=== PATIENT | male | born 1980 | race Two or more races ===

== ENCOUNTER 2016-11-21 19:52 | Emergency (ER) | payer BC ==
--- NOTE | 2016-11-21 19:56 | EDM.PDOC ---
ED HPI GENERAL MEDICAL PROBLEM - General Chief Complaint: Eye Problems Stated Complaint: EYES RED AND ITCHY Time Seen by Provider: 11/21/16 19:53 - History of Present Illness INITIAL COMMENTS - FREE TEXT/NARRATIVE: HISTORY AND PHYSICAL: History of present illness: Patient 37-year-old male presents with a concern of irritation redness of his eyes bilaterally since Monday he states he's been itchy he denies any trauma denies any visual disturbances no chronic medical problems on no medications and denies other concern. Review of systems: As per history of present illness and below otherwise all systems reviewed and negative. Past medical history: As per history of present illness and as reviewed below otherwise noncontributory. Surgical history: As per history of present illness and as reviewed below otherwise noncontributory. Social history: No reported history of drug or alcohol abuse. Family history: As per history of present illness and as reviewed below otherwise noncontributory. Physical exam: HEENT: Atraumatic, normocephalic, pupils reactive, injected conjunctiva bilaterally no foreign body anterior chamber clear negative for conjunctival pallor or scleral icterus, mucous membranes moist, throat clear, neck supple, nontender, trachea midline. Lungs: Clear to auscultation, breath sounds equal bilaterally, chest nontender. Heart: S1S2, regular, negative for clicks, rubs, or JVD. Abdomen: Soft, nondistended, nontender. Negative for masses or hepatosplenomegaly. Negative for costovertebral tenderness. Pelvis: Stable nontender. Genitourinary: Deferred. Rectal: Deferred. Extremities: Atraumatic, negative for cords or calf pain. Neurovascular unremarkable. Neuro: Awake, alert, oriented. Cranial nerves II through XII unremarkable. Cerebellum unremarkable. Motor and sensory unremarkable throughout. Exam nonfocal. Diagnostics: None Therapeutics: None Impression: #1 conjunctivitis Definitive disposition and diagnosis as appropriate pending reevaluation and review of above. ED ROS GENERAL - Review of Systems Review Of Systems: ROS reveals no pertinent complaints other than HPI. ED EXAM GENERAL W FULL EYE - Physical Exam Exam: See Below (See dictation) Departure - Departure Time of Disposition: 19:55 Disposition: Home, Self-Care 01 Condition: good Clinical Impression: Conjunctivitis - Discharge Information Forms: ED Department Discharge Additional Instructions: The following information is given to patients seen in the emergency department who are being discharged to home. This information is to outline your options for follow-up care. We provide all patients seen in our emergency department with a follow-up referral. The need for follow-up, as well as the timing and circumstances, are variable depending upon the specifics of your emergency department visit. If you don't have a primary care physician on staff, we will provide you with a referral. We always advise you to contact your personal physician following an emergency department visit to inform them of the circumstance of the visit and for follow-up with them and/or the need for any referrals to a consulting specialist. The emergency department will also refer you to a specialist when appropriate. This referral assures that you have the opportunity for followup care with a specialist. All of these measure are taken in an effort to provide you with optimal care, which includes your followup. Under all circumstances we always encourage you to contact your private physician who remains a resource for coordinating your care. When calling for followup care, please make the office aware that this follow-up is from your recent emergency room visit. If for any reason you are refused follow-up, please contact the [facility] emergency department at and asked to speak to the emergency department charge nurse. Tobramycin as directed follow-up primary medical doctor return as needed as discussed
[2016-11-21 20:15] VITALS: BP 131/70
== END 2016-11-21 20:15 | disposition home or self-care (01) ==
LOC: MW.ED 19:52
DX: H10.9 Unspecified conjunctivitis (principal)
CPT/HCPCS: 99282; 99283

== ENCOUNTER 2018-07-04 20:29 | Emergency (ER) | payer BC ==
[2018-07-04] MEDS ORDERED: Ketorolac 30 MG/ML SDV IVPUSH ONE (20:46)
[2018-07-04] MEDS ORDERED: Sodium Chloride 0.9% 1,000 ML IV ONE (20:46)
--- NOTE | 2018-07-04 20:46 | EDM.PDOC ---
ED HPI GENERAL MEDICAL PROBLEM - General Stated Complaint: PT HAS CHEST PAINS Time Seen by Provider: 07/04/18 20:38 Source of Information: Reports: Patient History Limitations: Reports: No Limitations - History of Present Illness INITIAL COMMENTS - FREE TEXT/NARRATIVE: HISTORY AND PHYSICAL: History of present illness: Patient is a 38 showed male who presents to the emergency room with complaints of left sided chest wall pain that radiates into his left shoulder. He states this has been ongoing for the past 2 days and is very localized. He denies any fever, chills, shortness of breath, cough. The pain is not made any better or worse with palpation, movement, deep breathing or coughing. He denies any abdominal pain, nausea, vomiting, diarrhea, constipation or dysuria. He has been able to eat and drink appropriately. No previous smoking history. No personal history of heart disease. States his father has heart disease, still living. 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 We did offer [facility] [facility] services which she declines. Review of systems: As per history of present illness and below otherwise all systems reviewed and negative. Past medical history: As per history of present illness and as reviewed below otherwise noncontributory. Surgical history: As per history of present illness and as reviewed below otherwise noncontributory. Social history: See social history for further information Family history: As per history of present illness and as reviewed below otherwise noncontributory. Physical exam: General: Well-developed and well-nourished 38 showed male. Alert and oriented. Nontoxic appearing and in no acute distress. HEENT: Atraumatic, normocephalic, pupils equal and reactive bilaterally, negative for conjunctival pallor or scleral icterus, mucous membranes moist, TMs normal bilaterally, throat clear, neck supple, nontender, trachea midline. No drooling or trismus noted. No meningeal signs. No hot potato voice noted. Lungs: Clear to auscultation, breath sounds equal bilaterally, chest nontender. Pain not reproducable. Heart: S1S2, regular rate and rhythm without overt murmur Abdomen: Soft, nondistended, nontender. Negative for masses or hepatosplenomegaly. Negative for costovertebral tenderness. Pelvis: Stable nontender. Genitourinary: Deferred. Rectal: Deferred. Skin: Intact, warm, dry. No lesions or rashes noted. Extremities: Atraumatic, negative for cords or calf pain. Neurovascular unremarkable. Neuro: Awake, alert, oriented. Cranial nerves II through XII unremarkable. Cerebellum unremarkable. Motor and sensory unremarkable throughout. Exam nonfocal. Notes: [employer] services was used for translating all of diagnostics. Patient reports he feels improved since the IV fluids and Toradol. I did offer him admission which she declines. I reviewed discharge instructions, signs and symptoms that would prompt him to return to the emergency room and risks versus benefits of being discharged. He voices understanding and is agreeable to plan of care. Denies any further questions or concerns from me. Diagnostics: CBC, CMP, troponin, EKG, one view chest Therapeutics: IV fluids, Toradol, GI cocktail, morphine Prescription: None Impression: Chest pain, nonspecific Plan: 1. Please start a baby Aspirin once daily 2. Tylenol and/or ibuprofen as needed for pain management. 3. Follow up with a primary care provider in the next 1-2 days. Return to the ED as needed and as discussed. Definitive disposition and diagnosis as appropriate pending reevaluation and review of above. L chest Pain Score (Numeric/FACES): 7 - Related Data Allergies Allergy/AdvReac Type Severity Reaction Status Date / Time No Known Allergies Allergy Verified 07/04/18 20:45 Home Meds: Home Meds . [No Known Home Meds] 11/21/16 [History] Past Medical History - Past Health History Medical/Surgical History: Denies Medical/Surgical History Psychiatric History: Reports: None - Infectious Disease History Infectious Disease History: Reports: None Social & Family History - Family History Family Medical History: Noncontributory ED ROS GENERAL - Review of Systems Review Of Systems: ROS reveals no pertinent complaints other than HPI. ED EXAM, GENERAL - Physical Exam Exam: See Below (See dictation) Course - Vital Signs Last Recorded V/S: Last Vital Signs Temp 97.4 F 07/04/18 20:38 Pulse 80 07/04/18 20:38 Resp 16 07/04/18 20:38 BP 129/66 07/04/18 20:38 Pulse Ox 96 07/04/18 20:38 - Orders/Labs/Meds Orders: Active Orders 24 hr Category Date Time Status EKG Documentation Completion [RC] STAT Care 07/04/18 20:34 Active Chest 1V Frontal [CR] Stat Exams 07/04/18 20:34 Taken GI Cocktail with Reglan 25 ML PO x 1 Med 07/04/18 21:57 Ordered Alum Hydrox/Mag Hydrox/Simeth [Mag-Al Plus] 15 ml Metoclopramide [Reglan] 5 mg Lidocaine 2% [Xylocaine 2% Viscous] 5 ml PO ONETIME Morphine Med 07/04/18 21:57 Once 2 mg IVPUSH ONETIME ONE Labs: Laboratory Tests 07/04/18 07/04/18 Range/Units 20:50 20:50 WBC 9.78 (4.0-11.0) K/uL RBC 4.69 (4.50-5.90) M/uL Hgb 14.8 (13.0-17.0) g/dL Hct 41.3 (38.0-50.0) % MCV 88.1 (80.0-98.0) fL MCH 31.6 (27.0-32.0) pg MCHC 35.8 (31.0-37.0) g/dL RDW Std Deviation 40.5 (28.0-62.0) fl RDW Coeff of Sarah 13 (11.0-15.0) % Plt Count 213 (150-400) K/uL MPV 10.50 (7.40-12.00) fL Neut % (Auto) 58.8 (48.0-80.0) % Lymph % (Auto) 31.3 (16.0-40.0) % [place]irie % (Auto) 8.8 (0.0-15.0) % Eos % (Auto) 0.9 (0.0-7.0) % Baso % (Auto) 0.2 (0.0-1.5) % Neut # (Auto) 5.8 H (1.4-5.7) K/uL Lymph # (Auto) 3.1 H (0.6-2.4) K/uL [place] # (Auto) 0.9 H (0.0-0.8) K/uL Eos # (Auto) 0.1 (0.0-0.7) K/uL Baso # (Auto) 0.0 (0.0-0.1) K/uL Nucleated RBC % 0.0 /100WBC Nucleated RBCs # 0 K/uL Sodium 140 (136-148) mmol/L Potassium 3.8 (3.5-5.1) mmol/L Chloride 105 (98-107) mmol/L Carbon Dioxide 26.9 (21.0-32.0) mmol/L BUN 14 (7.0-18.0) mg/dL Creatinine 1.0 (0.8-1.3) mg/dL Est Cr Clr Drug Dosing TNP Estimated GFR (MDRD) > 60.0 ml/min Glucose 110 H (74-106) mg/dL Calcium 9.3 (8.5-10.1) mg/dL Total Bilirubin 0.4 (0.2-1.0) mg/dL AST 34 (15-37) IU/L ALT 82 H (14-63) IU/L Alkaline Phosphatase 94 (46-116) U/L Troponin I < 0.050 (0.000-0.056) ng/mL Total Protein 7.4 (6.4-8.2) g/dL Albumin 3.7 (3.4-5.0) g/dL Globulin 3.7 (2.6-4.0) g/dL Albumin/Globulin Ratio 1.0 (0.9-1.6) Meds: Medications Discontinued Medications Generic Name Dose Route Start Last Admin Trade Name Freq PRN Reason Stop Dose Admin Sodium Chloride 1,000 mls @ 999 mls/hr 07/04/18 20:46 07/04/18 20:59 Normal Saline IV 07/04/18 21:46 999 mls/hr STAT ONE Administration Ketorolac Tromethamine 30 mg 07/04/18 20:46 07/04/18 20:58 Toradol IVPUSH 07/04/18 20:47 30 mg ONETIME ONE Administration Departure - Departure Time of Disposition: 21:58 Disposition: Home, Self-Care 01 Clinical Impression: Nonspecific chest pain Instructions: Nonspecific Chest Pain, [id number] Referrals: PCP,None [Primary Care Provider] - Additional Instructions: The following information is given to patients seen in the emergency department who are being discharged to home. This information is to outline your options for follow-up care. We provide all patients seen in our emergency department with a follow-up referral. The need for follow-up, as well as the timing and circumstances, are variable depending upon the specifics of your emergency department visit. If you don't have a primary care physician on staff, we will provide you with a referral. We always advise you to contact your personal physician following an emergency department visit to inform them of the circumstance of the visit and for follow-up with them and/or the need for any referrals to a consulting specialist. The emergency department will also refer you to a specialist when appropriate. This referral assures that you have the opportunity for follow-up care with a specialist. All of these measure are taken in an effort to provide you with optimal care, which includes your follow-up. Under all circumstances we always encourage you to contact your private physician who remains a resource for coordinating your care. When calling for follow-up care, please make the office aware that this follow-up is from your recent emergency room visit. If for any reason you are refused follow-up, please contact the [facility] Emergency Department at and asked to speak to the emergency department charge nurse. [facility] [address] [place] [id number] [id number] 1. Please start a baby Aspirin once daily 2. Tylenol and/or ibuprofen as needed for pain management. 3. Follow up with a primary care provider in the next 1-2 days. Return to the ED as needed and as discussed. - My Orders Last 24 Hours: My Active Orders 07/04/18 20:34 EKG Documentation Completion [RC] STAT Chest 1V Frontal [CR] Stat 07/04/18 21:57 GI Cocktail with Reglan 25 ML PO x 1 Alum Hydrox/Mag Hydrox/Simeth [Mag-Al Plus ] 15 ml Metoclopramide [Reglan] 5 mg Lidocaine 2% [Xylocaine 2% Viscous] 5 ml PO ONETIME Morphine 2 mg IVPUSH ONETIME ONE - Assessment/Plan Last 24 Hours: My Active Orders 07/04/18 20:34 EKG Documentation Completion [RC] STAT Chest 1V Frontal [CR] Stat 07/04/18 21:57 GI Cocktail with Reglan 25 ML PO x 1 Alum Hydrox/Mag Hydrox/Simeth [Mag-Al Plus ] 15 ml Metoclopramide [Reglan] 5 mg Lidocaine 2% [Xylocaine 2% Viscous] 5 ml PO ONETIME Morphine 2 mg IVPUSH ONETIME ONE
[2018-07-04 21:22] LABS: CHLORIDE,CL 105 mmol/L (98-107); SODIUM,NA 140 mmol/L (136-148)
[2018-07-04] MEDS ORDERED: Alum Hydrox/Mag Hydrox/Simeth 15 ML, Metoclopramide 5 MG, Lidocaine 2% 5 ML PO ONE ×3 (21:57)
[2018-07-04] MEDS ORDERED: Morphine 2 MG/ML Syringe IVPUSH ONE (21:57)
[2018-07-04 22:29] VITALS: BP 109/61
--- NOTE | 2018-07-05 08:35 | CR ---
INDICATION: chest pain TECHNIQUE: Chest 1 view. COMPARISON: None. FINDINGS: Cardiovascular and mediastinum: Heart size and vasculature are normal in caliber and appearance. Mediastinum is within normal limits. Lungs and pleural space: Lungs are clear. No sign of infiltrate or mass. No sign of pleural effusion. No pneumothorax. Bones and soft tissues: No significant findings. IMPRESSION: Unremarkable chest. Dictated by: Ravin Schumacher MD @ 07/04/2018 21:46:17 (Electronically Signed)
== END 2018-07-04 22:18 | disposition home or self-care (01) ==
LOC: MW.ED 20:29
DX: R07.89 Other chest pain (principal)
CPT/HCPCS: 36415; 71045; 80053; 84484; 85025; 93005; 96361; 96374; 99285; A9270; J1885; J7040

== ENCOUNTER 2019-05-01 23:02 | Emergency (ER) | payer SELFPAY ==
[2019-05-01 23:08] VITALS: BP 135/79; PULSE 85
--- NOTE | 2019-05-01 23:20 | EDM.PDOC ---
ED HPI GENERAL MEDICAL PROBLEM - General Chief Complaint: ENT Problem Stated Complaint: SORE THROAT Time Seen by Provider: 05/01/19 23:16 - History of Present Illness INITIAL COMMENTS - FREE TEXT/NARRATIVE: HISTORY AND PHYSICAL: History of present illness: Patient is a 39-year-old male presents with a concern of sore throat worse over last 2 days denies fever chills nausea vomiting Review of systems: As per history of present illness and below otherwise all systems reviewed and negative. Past medical history: As per history of present illness and as reviewed below otherwise noncontributory. Surgical history: As per history of present illness and as reviewed below otherwise noncontributory. Social history: No reported history of drug or alcohol abuse. Family history: As per history of present illness and as reviewed below otherwise noncontributory. Physical exam: HEENT: Atraumatic, normocephalic, pupils reactive, negative for conjunctival pallor or scleral icterus, mucous membranes moist, throat pustular exudates noted no peritonsillar fullness or uvular deviation, neck supple, nontender, trachea midline. Lungs: Clear to auscultation, breath sounds equal bilaterally, chest nontender. Heart: S1S2, regular, negative for clicks, rubs, or JVD. Abdomen: Soft, nondistended, nontender. Negative for masses or hepatosplenomegaly. Negative for costovertebral tenderness. Pelvis: Stable nontender. Genitourinary: Deferred. Rectal: Deferred. Extremities: Atraumatic, negative for cords or calf pain. Neurovascular unremarkable. Neuro: Awake, alert, oriented. Cranial nerves II through XII unremarkable. Cerebellum unremarkable. Motor and sensory unremarkable throughout. Exam nonfocal. Diagnostics: Deferred Therapeutics: None Impression: #1 exudative pharyngitis Definitive disposition and diagnosis as appropriate pending reevaluation and review of above. throat Pain Score (Numeric/FACES): 10 - Related Data Allergies Allergy/AdvReac Type Severity Reaction Status Date / Time No Known Allergies Allergy Verified 05/01/19 23:04 Home Meds: Home Meds . [No Known Home Meds] 11/21/16 [History] Past Medical History - Past Health History Medical/Surgical History: Denies Medical/Surgical History Psychiatric History: Reports: None - Infectious Disease History Infectious Disease History: Reports: None Social & Family History - Family History Family Medical History: Noncontributory - Tobacco Use Smoking Status *Q: Never Smoker - Recreational Drug Use Recreational Drug Use: No ED ROS GENERAL - Review of Systems Review Of Systems: Comprehensive ROS is negative, except as noted in HPI. ED EXAM, GENERAL - Physical Exam Exam: See Below (See dictation) Course - Vital Signs Last Recorded V/S: Last Vital Signs Temp 36.9 C 05/01/19 23:06 Pulse 85 05/01/19 23:06 Resp 18 05/01/19 23:06 BP 135/79 05/01/19 23:06 Pulse Ox 95 05/01/19 23:06 Departure - Departure Time of Disposition: 23:20 Disposition: Home, Self-Care 01 Condition: Good Clinical Impression: Exudative pharyngitis - Discharge Information Additional Instructions: The following information is given to patients seen in the emergency department who are being discharged to home. This information is to outline your options for follow-up care. We provide all patients seen in our emergency department with a follow-up referral. The need for follow-up, as well as the timing and circumstances, are variable depending upon the specifics of your emergency department visit. If you don't have a primary care physician on staff, we will provide you with a referral. We always advise you to contact your personal physician following an emergency department visit to inform them of the circumstance of the visit and for follow-up with them and/or the need for any referrals to a consulting specialist. The emergency department will also refer you to a specialist when appropriate. This referral assures that you have the opportunity for followup care with a specialist. All of these measure are taken in an effort to provide you with optimal care, which includes your followup. Under all circumstances we always encourage you to contact your private physician who remains a resource for coordinating your care. When calling for followup care, please make the office aware that this follow-up is from your recent emergency room visit. If for any reason you are refused follow-up, please contact the [facility] emergency department at and asked to speak to the emergency department charge nurse. Augmentin as prescribed push fluids Motrin/Tylenol as directed follow-up primary medical doctor as needed as discussed and return as needed as discussed
== END 2019-05-01 23:41 | disposition home or self-care (01) ==
LOC: MW.ED 23:02
DX: J02.9 Acute pharyngitis, unspecified (principal)
CPT/HCPCS: 99282

== ENCOUNTER 2020-10-06 05:28 | Emergency (ER) | payer SELFPAY ==
[2020-10-06] MEDS ORDERED: Ibuprofen 600 MG Tab PO ONE (05:51)
--- NOTE | 2020-10-06 06:00 | EDM.PDOC ---
<Juliano Marshall - Last Filed: 10/06/20 05:56> ED HPI GENERAL MEDICAL PROBLEM - General Chief Complaint: Respiratory Problem Stated Complaint: COUGH Time Seen by Provider: 10/06/20 05:49 - History of Present Illness INITIAL COMMENTS - FREE TEXT/NARRATIVE: HISTORY AND PHYSICAL: History of present illness: This is a 40-year-old gentleman with no significant past medical history who presents ER today secondary to nonproductive cough for approximately 1 week. Patient reports that he works in the [employer]. Patient denies any known Covid exposures. Patient denies any recent fevers, shakes, chills, nausea, vomiting, diarrhea. Patient reports he does feel short of breath with sharp chest pain with deep inspiration and coughing. Patient denies any dysuria, frequency, urgency. Patient denies any abdominal discomfort. Patient denies any headache or photophobia. Patient denies any sore throat or ear pain. Patient currently is not on any antibiotics and does not seek medical attention for this as of yet. Of note, patient is here with his who has similar symptoms but is currently being treated for strep throat with Augmentin after being evaluated by a local physician yesterday. Patient has not been tested nor has he had the coronavirus vaccine as of yet. Review of systems: As per history of present illness and below otherwise all systems reviewed and negative. Past medical history: As per history of present illness and as reviewed below otherwise noncontributory. Surgical history: As per history of present illness and as reviewed below otherwise noncontributory. Social history: No reported history of drug or alcohol abuse. Family history: As per history of present illness and as reviewed below otherwise noncontributory. Physical exam: This patient was seen and evaluated during the 2019 SARS-CoV-2 novel coronavirus pandemic period. Community viral transmission is ongoing at time of this encounter and the emergency department is operating under pandemic response procedures. Constitutional: Patient is oriented to person, place, and time. Appears well- developed and well-nourished. No distress. HEENT: Moist mucous membranes Head: Normocephalic and atraumatic. Neck supple, no nuchal rigidity, no photophobia, patient does not present with signs or symptoms of be consistent with meningitis. Eyes: Right eye exhibits no discharge. Left eye exhibits no discharge. No scleral icterus Neck: Normal range of motion. No tracheal deviation present. Cardiovascular: Normal rate and regular rhythm. Regular rate and rhythm Pulmonary: Effort normal, no respiratory distress. No wheezing rales or rhonchi, no sternocleidomastoid muscle use, no nasal flaring, no suprasternal retractions. Abdominal: No distention Musculoskeletal: Normal range of motion Neurologic: Alert and oriented to person, place and time. Skin: Conception, warm and dry. Psychiatric: Normal mood and affect. Behavior is normal. Judgment and thought content normal. Nursing note and vital signs have been reviewed Diagnostics: Chest x-ray Covid Influenza Therapeutics: Ibuprofen 600 mg p.o. Assessment and plan: This is a 40-year-old gentleman with no significant past medical history who presents to the ER today secondary to cough x1 week. Patient is symptoms appear to be consistent with likely viral upper respiratory infection. Given the current pandemic, coronavirus is a possible cause for the patient's symptoms. Patient reports that he has not been tested for coronavirus nor has he had the coronavirus vaccination as of yet. Patient is clinically and hemodynamically stable at this time without any evidence of any respiratory distress. Patient's pulse ox is 99% on room air. Patient is not exhibiting any evidence of accessory muscle use for respirations. Patient is here with his with similar symptoms. Patient will have a Covid test, chest x-ray, influenza test. Patient has been given ibuprofen 600 mg p.o. secondary to pain and discomfort in his chest with deep inspiration and cough. Definitive disposition and diagnosis as appropriate pending reevaluation and review of above. - Related Data Allergies Allergy/AdvReac Type Severity Reaction Status Date / Time No Known Allergies Allergy Verified 10/06/20 06:06 Home Meds: Home Meds . [No Known Home Meds] 11/21/16 [History] Past Medical History - Past Health History Medical/Surgical History: Denies Medical/Surgical History Psychiatric History: Reports: None - Infectious Disease History Infectious Disease History: Reports: None Social & Family History - Family History Family Medical History: No Pertinent Family History ED ROS GENERAL - Review of Systems Review Of Systems: See Below ED EXAM, GENERAL - Physical Exam Exam: See Below Departure - Departure Disposition: Home, Self-Care 01 Clinical Impression: COVID-19 - Discharge Information Instructions: COVID-19 Frequently Asked Questions, COVID-19 Referrals: PCP,None [Primary Care Provider] - Forms: ED Department Discharge Additional Instructions: Alina grady sobre taisha base emergente. En beckie momento le diagnosticaron COVID-19. Segn las directrices de los CDC, recomiendan taisha cuarentena de 14 armstrong. Es im portante que use taisha mascarilla, se lave las sudarshan, se mantenga hidratado y descanse. Utilice Tylenol y Motrin para aliviar la fiebre y el dolor. Si tiene alguna dificultad para respirar que empeora, regrese al departamento de emergencias. Valeri un seguimiento con paul mdico de atencin primaria. Por favor use: Tylenol 500-1000 mg cada 6 horas (NO TOME MS DE 4000 mg en 1 da) Ibuprofeno 400 mg cada 6 horas (florencio con comida ya que puede causar lceras, malestar gastrointestinal) Programa de ejemplo: 8:00 a. M. (Tylenol 500-1000 mg) 11:00 AM (Ibuprofeno 400 mg) 2:00 p. M. (Tylenol 500-1000 mg) 5:00 p. M. (Ibuprofeno 400 mg) Donald Agarwal - Atencin primaria [address] [place] [id number] [place]: [facility] [address] [place] [address] Telfono: Se informa al paciente de los resultados de paul evaluacin y diagnstico y se responden todas las preguntas. Se les raheel instrucciones de jamison y precauciones de devolucin. El paciente est estable para el jamison. El paciente afirma que entiende y est de acuerdo con el plan y que volver si snehal sntomas empeoran o si tiene alguna inquietud nueva. La siguiente informacin se jarrod a los pacientes atendidos en el departamento de emergencias que estn siendo dados de jamison a paul hogar. Esta informacin es para describir snehal opciones para la atencin de seguimiento. Proporcionamos a todos los pacientes atendidos en nuestro departamento de emergencias taisha derivacin de seguimiento. La necesidad de seguimiento, as dougie el momento y las circunstancias, varan segn los detalles de paul visita al departamento de emergencias. Si no tiene un mdico de atencin primaria en el personal, le proporcionaremos taisha referencia. Siempre le recomendamos que se ponga en contacto con paul mdico personal despus de taisha visita al servicio de urgencias para informarle de las circunstancias de la visita y para realizar un seguimiento con l y / o la necesidad de cualquier derivacin a un especialista consultor. El departamento de emergencias tambin lo derivar a un especialista cuando sea apropiado. Esta remisin le asegura que tiene la oportunidad de recibir atencin de seguimiento con un especialista. Todas estas medidas se william en un esfuerzo por brindarle taisha atencin ptima, que incluye paul seguimiento. En todas las circunstancias, siempre lo alentamos a que se comunique con paul mdico privado, quien sigue siendo un recurso para coordinar paul atencin. Cuando llame para recibir atencin de seguimiento, informe al consultorio que beckie seguimiento es de paul visita reciente a la kelly de emergencias. Si por alguna razn se le niega el seguimiento, comunquese con el [facility]amento [facility] del [facility] fernanda y solicite hablar con la enfermera a cargo del departamento de emergencias. <Jakob Panchal - Last Filed: 10/06/20 08:15> ED HPI GENERAL MEDICAL PROBLEM - History of Present Illness INITIAL COMMENTS - FREE TEXT/NARRATIVE: Patient was signed out to me by Dr. Marshall pending COVID-19, flu, and chest x- ray at 6 AM I did reevaluate the patient and patient was breathing comfortably and was saturating appropriately in no acute distress. Patient was intermittently coughing which was nonproductive. Laboratory: Covid 19+. Influenza A & B negative. The radiological images were viewed by myself along with reading the report from the radiologist. Chest x-ray did not reveal any acute cardiopulomary process After labs and imaging I did discuss the results with the patient with the use of a translator interpreter. At this time I did discuss with him that he needed to use Tylenol and Motrin for fever and pain relief, purchase an [id number] pulse oximeter to monitor his oxygen saturation, and use soups and teas to maintain hydration and honey for cough or [id number] cough syrup. He is to return for any new or worsening symptoms. A quarantine work excuse was provided to the patient. He did express understanding was amenable to discharge at this time DISPOSITION: The patient was discharged home in stable condition. The patient will follow up with primary care physician CONDITION: Fair PROCEDURES: None FINAL IMPRESSION(S)/DIAGNOSES: 1. Acute COVID-19 infection Jakob Panchal M.D. Course - Vital Signs Last Recorded V/S: Last Vital Signs Temp 37.8 C 10/06/20 05:40 Pulse 90 10/06/20 05:40 Resp 18 10/06/20 05:40 BP 125/59 L 10/06/20 05:40 Pulse Ox 96 10/06/20 05:40 - Orders/Labs/Meds Labs: Laboratory Tests 10/06/20 Range/Units 05:50 Influenza Type A RNA NEGATIVE (NEGATIVE) Influenza Type B RNA NEGATIVE (NEGATIVE) SARS-CoV-2 RNA (MITCH) POSITIVE H (NEGATIVE) Meds: Medications Discontinued Medications Generic Name Dose Route Start Last Admin Trade Name Freq PRN Reason Stop Dose Admin Ibuprofen 600 mg 10/06/20 05:51 10/06/20 06:01 Ibuprofen 600 Mg Tab PO 10/06/20 05:52 600 mg ONETIME ONE Administration Departure - Departure Time of Disposition: 08:00 Condition: Fair - Discharge Information *PRESCRIPTION DRUG MONITORING PROGRAM REVIEWED*: No *COPY OF PRESCRIPTION DRUG MONITORING REPORT IN PATIENT SHIRLEY: No Sepsis Event Note (ED) - Focused Exam Vital Signs: Vital Signs Temp Pulse Resp BP Pulse Ox 10/06/20 05:40 37.8 C 90 18 125/59 L 96
[2020-10-06 06:46] LABS: CORONAVIRUS COVID-19 NAA POSITIVE (NEGATIVE); INFLUENZA A NAA NEGATIVE (NEGATIVE); INFLUENZA B NAA NEGATIVE (NEGATIVE)
--- NOTE | 2020-10-06 07:24 | CR ---
INDICATION: Cough. TECHNIQUE: Chest 1 view. COMPARISON: Chest radiograph 07/04/2018. FINDINGS: No focal consolidation, pleural effusion, or pneumothorax. Normal heart size and pulmonary vascularity. The bones are unremarkable. IMPRESSION: No acute cardiopulmonary findings. Dictated by Renee Hartley MD @ Oct 06 2020 7:22AM Signed by Dr. Renee Hartley @ Oct 06 2020 7:24AM
[2020-10-06 08:19] VITALS: BP 115/68; PULSE 83
== END 2020-10-06 08:19 | disposition home or self-care (01) ==
LOC: MW.ED 05:28
DX: U07.1 COVID-19 (principal)
CPT/HCPCS: 0240U; 71045; 99283; A9270

== ENCOUNTER 2025-05-16 10:14 | Emergency (ER) | payer SELFPAY ==
[2025-05-16 11:44] VITALS: BP 122/53; PULSE 91
== END 2025-05-16 11:44 | disposition home or self-care (01) ==
LOC: MW.ED 10:14
DX: J18.9 Pneumonia, unspecified organism (principal); Z79.899 Other long term (current) drug therapy
CPT/HCPCS: 71045; 94640; 99285; J3535; 99283; A9270-GY